=== PATIENT | male | born 2000 ===

== ENCOUNTER 2024-04-18 21:13 | Emergency (ER) | payer OTHER ==
[~2024-04-18] VITALS: Ht 167.6 cm; Wt 72.6 kg
[2024-04-19] MEDS ORDERED: Dexamethasone Sod Phos 10 MG/ML 1ML VIAL IV ONE (00:40)
[2024-04-19] MEDS ORDERED: Ondansetron HCl 2 MG / ML 2ML Vial IV ONE (00:40)
[2024-04-19] MEDS ORDERED: Morphine Sulfate 4 MG/1 ML Injection IV ONE (00:40)
[2024-04-19] MEDS ORDERED: RX Prepack 2 Sprays Naloxone HCL 4 MG/SPRAY UD ONE (00:45)
[2024-04-19] MEDS ORDERED: NS 1,000 ML IV SCH (00:45)
[2024-04-19] MEDS ORDERED: RX Prepack 6 Tabs Oxycodone 5mg UD ONE (00:45)
== END 2024-04-19 01:26 | disposition home or self-care (01) ==
LOC: ER 21:13
DX: M54.50 Low back pain, unspecified (principal); G89.29 Other chronic pain; M62.838 Other muscle spasm; Z88.0 Allergy status to penicillin; Z88.8 Allergy status to other drugs, medicaments and biological substances
CPT/HCPCS: 96374; 96375; 99283-25; A9270; J1100; J2270; J2405; J7030

== ENCOUNTER 2024-07-24 13:18 | Emergency (ER) | payer OTHER ==
[~2024-07-24] VITALS: Ht 182.9 cm; Wt 95.2 kg
[2024-07-24] MEDS ORDERED: Percocet 5-3251 EACH (13:48)
[2024-07-24] MEDS ORDERED: Carisoprodol350 MG (13:48)
== END 2024-07-24 15:38 | disposition left against medical advice (07) ==
LOC: ER 13:18
DX: R42 Dizziness and giddiness (principal); R41.0 Disorientation, unspecified; R51.9 Headache, unspecified; Z53.29 Procedure and treatment not carried out because of patient's decision for other reasons; F17.290 Nicotine dependence, other tobacco product, uncomplicated; Z87.820 Personal history of traumatic brain injury; W01.198A Fall on same level from slipping, tripping and stumbling with subsequent striking against other object, initial encounter
CPT/HCPCS: 99281